=== PATIENT | male | born 1945 | race Asian ===

== ENCOUNTER 2016-07-30 17:45 | Inpatient (IN) | payer OTHER, MEDICARE ==
[~2016-07-30] VITALS: Ht 167.6 cm; Wt 63.1 kg
[2016-07-30 18:40] LABS: BASOPHIL % 0.5 % (0-2); PLATELET COUNT 210 x10^3mcL (130-400)
[2016-07-30 18:49] LABS: CALCIUM 8.6 mg/dL (8.5-10.1); CARBON DIOXIDE 30.4 mmol/L (21-32); CREATININE SERUM 1.4 mg/dL (0.7-1.3); POTASSIUM SERUM 3.2 mmol/L (3.5-5.1)
[2016-07-30 18:56] LABS: ALBUMIN 3.8 g/dL (3.4-5.0); BILIRUBIN TOTAL 1.5 mg/dL (0.20-1.00); TOTAL PROTEIN, SERUM 7.8 g/dL (6.4-8.2)
[2016-07-31] VITALS (7 sets, daily range): BP systolic 108–124; BP diastolic 51–68
[2016-07-31 00:11] LABS: CHOLESTEROL/HDL RATIO 2.8
[2016-07-31 00:12] LABS: T3 TOTAL 1.01 ng/mL
[2016-07-31 00:17] LABS: FREE T4 1.22 ng/dL (0.76-1.46); FREE THYROXINE INDEX 3.5 ug/dL (1.4-4.5); T4(THYROXINE) 9.3 ug/dL (4.7-13.3)
[2016-07-31 07:17] LABS: PLATELET COUNT 167 x10^3mcL (130-400)
[2016-07-31 07:38] LABS: BILIRUBIN TOTAL 2.4 mg/dL (0.20-1.00); CALCIUM 8.5 mg/dL (8.5-10.1); CARBON DIOXIDE 26.5 mmol/L (21-32); CREATININE SERUM 1.5 mg/dL (0.7-1.3); MAGNESIUM 1.8 mg/dL (1.8-2.4); PHOSPHOROUS 4.3 mg/dL (2.5-4.9); POTASSIUM SERUM 4.2 mmol/L (3.5-5.1); TOTAL PROTEIN, SERUM 6.7 g/dL (6.4-8.2)
[2016-07-31 07:39] LABS: ALBUMIN 3.2 g/dL (3.4-5.0)
[2016-07-31 09:28] LABS: microscopic required? YES; urine erythrocyte TRACE (NEGATIVE)
[2016-07-31 12:14] LABS: BAND NEUTROPHIL 34 % (0-10); MONOCYTE 5 % (0-7); SEGMENTED NEUTROPHILS 47 % (37-75); ovalocyte/elliptocyte 3+; rbc morphology (normal/abnorm) ABNORMAL (NORMAL)
[2016-08-01 06:06] VITALS: BP 128/62
[2016-08-01 06:18] LABS: BASOPHIL % 0.1 % (0-2); PLATELET COUNT 150 x10^3mcL (130-400); RED CELL DISTRIBUTION WIDTH 14.2 % (11.5-14.5)
[2016-08-01 06:53] LABS: ALKALINE PHOSPHATASE 118 U/L (46-116); ALT/SGPT 267 U/L (16-63); AST/SGOT 164 U/L (15-37); BILIRUBIN TOTAL 6.9 mg/dL (0.20-1.00); CALCIUM 8.7 mg/dL (8.5-10.1); CARBON DIOXIDE 29.6 mmol/L (21-32); CHLORIDE SERUM 104 mmol/L (98-107); CREATININE SERUM 1.2 mg/dL (0.7-1.3); GFR1 > 60 mL/min; GLUCOSE SERUM 86 mg/dL (74-106); POTASSIUM SERUM 3.5 mmol/L (3.5-5.1); SODIUM SERUM 140 mmol/L (136-145); TOTAL PROTEIN, SERUM 6.8 g/dL (6.4-8.2)
[2016-08-01 08:06] LABS: LIPASE 5924 IU/L (73-393)
[2016-08-01 12:00] VITALS: BP 121/64
[2016-08-01 17:07] VITALS: BP 103/60
[2016-08-01 20:44] VITALS: BP 102/62
[2016-08-02 05:05] VITALS: BP 120/72
[2016-08-02 06:14] LABS: PLATELET COUNT 133 x10^3mcL (130-400); RED CELL DISTRIBUTION WIDTH 14.2 % (11.5-14.5)
[2016-08-02 06:27] LABS: ALBUMIN 2.5 g/dL (3.4-5.0); ALKALINE PHOSPHATASE 118 U/L (46-116); ALT/SGPT 228 U/L (16-63); AST/SGOT 161 U/L (15-37); BILIRUBIN TOTAL 3.06 mg/dL (0.20-1.00); CALCIUM 8.5 mg/dL (8.5-10.1); CARBON DIOXIDE 28.4 mmol/L (21-32); CHLORIDE SERUM 107 mmol/L (98-107); GFR1 > 60 mL/min; GLUCOSE SERUM 120 mg/dL (74-106); SODIUM SERUM 140 mmol/L (136-145)
[2016-08-02 07:09] LABS: BASOPHIL % 0 % (0-2)
[2016-08-02 08:20] VITALS: BP 143/79
[2016-08-02 14:58] VITALS: BP 119/70
[2016-08-02 17:01] VITALS: BP 136/82
[2016-08-02 21:57] VITALS: BP 150/87
[2016-08-03 00:34] VITALS: BP 162/89
[2016-08-03 01:02] VITALS: BP 136/87
[2016-08-03 06:15] VITALS: BP 145/92
[2016-08-03 07:33] LABS: BASOPHIL % 0.1 % (0-2); PLATELET COUNT 159 x10^3mcL (130-400); RED CELL DISTRIBUTION WIDTH 13.9 % (11.5-14.5)
[2016-08-03 07:40] LABS: CALCIUM 8.2 mg/dL (8.5-10.1); CARBON DIOXIDE 31.5 mmol/L (21-32); CHLORIDE SERUM 103 mmol/L (98-107); GFR1 > 60 mL/min; GLUCOSE SERUM 91 mg/dL (74-106); POTASSIUM SERUM 3.3 mmol/L (3.5-5.1); SODIUM SERUM 141 mmol/L (136-145)
[2016-08-03 10:30] VITALS: BP 146/73
[2016-08-03] MEDS ORDERED: LAC PO (10:53)
[2016-08-03] MEDS ORDERED: SIMETHICONE80 MG CH (10:53)
[2016-08-03] MEDS ORDERED: COLACE100 MG PO (10:54)
[2016-08-03] MEDS ORDERED: NORCO1 TA2 PO ×2 (10:54→11:10)
[2016-08-03] MEDS ORDERED: ZESTRIL20 MG PO (10:56)
[2016-08-03 12:20] VITALS: BP 137/78; BP 97/78
[2016-08-03 13:19] VITALS: BP 137/78
== END 2016-08-03 15:39 | disposition home or self-care (01) | DRG 263 ==
LOC: ED 17:45 → DU 23:18 → MU 23:18 → DU 07-31 00:10 → MU 08-02 17:58
PROVIDERS: Emergency Medicine; Family Medicine; Internal Medicine Gastroenterology; Surgery; ADMIT Family Medicine
PROC: BF101ZZ Fluoroscopy of Bile Ducts using Low Osmolar Contrast (ICD-10-PCS; 2016-07-31)
PROC: 0F798ZZ Dilation of Common Bile Duct, Via Natural or Artificial Opening Endoscopic (ICD-10-PCS; 2016-07-31 14:30)
PROC: 0FT44ZZ Resection of Gallbladder, Percutaneous Endoscopic Approach (ICD-10-PCS; principal; 2016-08-01 07:45)
DX: K85.10 Biliary acute pancreatitis without necrosis or infection (principal); N17.0 Acute kidney failure with tubular necrosis; K81.0 Acute cholecystitis; E87.6 Hypokalemia; R00.0 Tachycardia, unspecified; E78.5 Hyperlipidemia, unspecified; R74.0 Nonspecific elevation of levels of transaminase and lactic acid dehydrogenase [LDH]; Z53.29 Procedure and treatment not carried out because of patient's decision for other reasons; I10 Essential (primary) hypertension; I27.2 Other secondary pulmonary hypertension
CPT/HCPCS: 43262; 82962; 83880; 84439; 94150; C1769; C9113; J0295; J0330; J1644; J2175; J2250; J2270; J2405; J2704; J2710; J2765; J3010; J3480; J3490; J7030; J7040; J7120; Q0092; Q9967